=== PATIENT | male | born 1940 | race American Indian/Alaskan Native ===

== ENCOUNTER 2021-02-10 21:45 | Emergency (ER) | payer MEDICARE ==
[~2021-02-10 21:45] MED LIST: AMIODARONE 150 MG/3 ML INJ IV ONE; EPINEPHrine 1 MG/10 ML SYRINGE ONE; SODIUM BICARB 8.4% 50 MEQ/50 ML SYRINGE IV ONE
--- NOTE | 2021-02-10 22:02 | Emergency Department Report ---
HPI - General Time Seen by Provider: 02/10/21 21:54 - HPI HPI: 82-year-old -[place] male presents to the emergency department via EMS from [facility] in cardiac arrest. The initial call from [facility] was for lethargy, hypotension, and when EMS arrived they found the patient to be in respiratory distress with severe bradypnea. Just after EMS arrival the patient went into cardiac arrest. Initially he was in sinus tachycardia and then went into ventricular fibrillation. He was given a 200 J defibrillation, chest compressions were started and the patient was receiving bag valve ventilation. In the next pulse and rhythm check, the patient was in asystole. The patient was intubated in route, but upon arrival the endotracheal tube did not appear to be in appropriate position. The patient was brought to room #23 will be continued ACLS protocol with chest compressions, reintubation with bag valve ventilation, and appropriate ACLS medications. The patient has a past medical history of dementia, GERD, prostate cancer. ED Review of Systems ROS: Stated complaint: CARDIAC ARREST Other details as noted in HPI Comment: Unobtainable due to pts medical conditions Physical Exam - Physical Exam Physical Exam: GENERAL: Patient is ill-appearing and unresponsive. HENT: Normocephalic. Atraumatic. EYES: Pupils are fixed and dilated. NECK: Supple. Trachea appears midline. CHEST/LUNGS: There are no spontaneous respirations. HEART/CARDIOVASCULAR: There are no spontaneous heart sounds. ABDOMEN: Abdomen is soft. There is no abdominal distention. SKIN: Skin is cool but dry. NEURO: Unresponsive. Does not withdraw to painful stimuli. Does not follow any commands. MUSCULOSKELETAL: There is no obvious deformity. There is no evidence of acute injury. No palpable femoral or radial pulses. - Intubation Time Out Performed: No Sedative: none Laryngoscope: other (Mont[place] scope) Size: 3 ET Tube Size: 7 Tube Secured Depth (cm): 24 Tube Secured Location: lips Tube Placement Confirmation: visualized tube passing t, equal breath sounds bilat, confirmation by capnometr Intubation Complications: none ED Medical Decision Making - Medical Decision Making The patient presents in cardiac arrest. He was moved into room #23 we continued ACLS protocol. I intubated the patient as per the procedure section. The patient was receiving bag valve ventilation through the endotracheal tube and chest compressions. The patient had an Accu-Chek of 89. He was given a dose of epinephrine and sodium bicarbonate. On the first pulse and rhythm check, the patient was in pulseless V. fib. He was then given a 200 J defibrillation. He was given another dose of epinephrine and 300 mg of amiodarone. On the next pulse and rhythm check, the patient is in PEA. We continued ACLS protocol and on the third pulse and rhythm check, the patient was once again in PEA. At this point the patient has been anoxic for about 30 minutes. He has received 4 doses of epinephrine, 1 of sodium bicarbonate, 300 mg of amiodarone, 2 different defibrillations, and consistent chest compressions and bag valve ventilation. Pupils are fixed and dilated, there are no spontaneous heart or breath sounds. Time of was called at 2152. Critical Care Time: Yes Critical care time in (mins) excluding proc time.: 15 Critical care attestation.: If time is entered above; I have spent that time in minutes in the direct care of this critically ill patient, excluding procedure time. Critical care time spent on this patient in doing EMS prearrival, his initial evaluation and supervision of ACLS protocol. Critical Care Time: 15 minutes ED Disposition Clinical Impression: Cardiac arrest Acute respiratory failure Qualifiers: Respiratory failure complication: unspecified whether with hypoxia or hypercapnia Qualified Code(s): J96.00 - Acute respiratory failure, unspecified whether with hypoxia or hypercapnia Disposition: 20 Is pt being admited?: No Time of Disposition: 00:08
== END 2021-02-11 02:29 ==
LOC: ED 21:45
DX: I46.9 Cardiac arrest, cause unspecified (principal); J96.00 Acute respiratory failure, unspecified whether with hypoxia or hypercapnia
CPT/HCPCS: 31500; 92950; 99285; J0171; J0282